=== PATIENT | female | born 1965 | race Caucasian/White ===

== ENCOUNTER 2022-02-26 20:58 | Emergency (ER) | payer OTHER ==
[~2022-02-26] VITALS: Ht 167.6 cm; Wt 61.2 kg
--- NOTE | 2022-02-26 21:25 | NUR ---
BIBA PT A/O X 3 FROM HOME C/O DIZZY X TODAY, GENERALIZED BODY ACHES AND COUGH.
[2022-02-26 21:49] LABS: BASOPHILS % (AUTO) 0.8 % (0.0-2.0); EOSINOPHILS % (AUTO) 1.6 % (0.0-6.0); HEMATOCRIT 43 % (33-45); HEMOGLOBIN 14.5 g/dL (11.5-14.8); LYMPHOCYTES % (AUTO) 42.5 % (20.0-44.0); MEAN CORPUSCULAR HGB CONC 34 g/dl (31.0-36.0); MEAN CORPUSCULAR VOLUME 95 fL (82-100); MONOCYTES # (AUTO) 0.5 K/uL (0.1-1.30); MONOCYTES % (AUTO) 11.3 % (2.0-12.0); NEUTROPHILS % (AUTO) 43.8 % (43.0-81.0); PLATELET COUNT (AUTO) 219 K/uL (150-450); RED BLOOD CELL COUNT(AUTO) 4.52 MIL/uL (4.0-5.2); WHITE BLOOD COUNT (AUTO) 4.6 K/uL (4.3-11.0)
[2022-02-26 22:06] LABS: CALCIUM, SERUM 9.1 mg/dL (8.5-10.1); CREATININE 0.8 mg/dL (0.6-1.3); POTASSIUM 3.9 mmol/L (3.5-5.1)
[2022-02-26 22:12] LABS: ALBUMIN 3.2 g/dL (3.4-5.0); BILIRUBIN,DIRECT 0.1 mg/dL (0.0-0.2); BILIRUBIN,TOTAL 0.2 mg/dL (0.2-1.0); TOTAL PROTEIN, SERUM 6.9 g/dL (6.4-8.2)
--- NOTE | 2022-02-26 22:14 | NUR ---
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
--- NOTE | 2022-02-26 22:28 | NUR ---
C.SWAB COLLECTED AND SENT
[2022-02-26] MEDS ORDERED: MECLIZINE HCL 25 MG TABLET PO ONE (22:30)
[2022-02-26] MEDS ORDERED: LORAZEPAM INJ 2 MG/ML VIAL IV ONE (22:30)
[2022-02-26] MEDS ORDERED: MECLIZINE HCL 25 MG TABLET ONE (22:30)
[2022-02-26] MEDS ORDERED: LORAZEPAM INJ 2 MG/ML VIAL ONE (22:33)
[2022-02-26] MEDS ORDERED: ASPIRIN 81 MG TAB.CHEW ONE (23:58)
[2022-02-27] MEDS ORDERED: ASPIRIN 81 MG TAB.CHEW PO ONE
--- NOTE | 2022-02-27 02:11 | NUR ---
PT ACCEPTED TO [facility] BY DR CLAROS, ROOM 6W 616-A. # FOR REPORT [phone]. AUTH# FOR TRANSPORT [id number]. [facility] CALL PIT MANAGER ROSALBA WITH TRANSPORT ETA. [phone]
--- NOTE | 2022-02-27 02:25 | NUR ---
CALLED [facility]. NO ALS TRANSPORT AVAILABLE FOR OVER 12 HOURS.
--- NOTE | 2022-02-27 02:26 | NUR ---
CALLED [facility] FOR AN ALS TRANSPORT REQUEST. NO ANSWER.
--- NOTE | 2022-02-27 02:27 | NUR ---
CALLED [facility] FOR ALS TRANSPORT. [facility] WILL BE HERE TO TRANSFER PT TO [facility] AT 0700.
--- NOTE | 2022-02-27 04:30 | NUR ---
REPORT GIVEN TO AUREA RN 6 [facility] EPT WILL BE PICKED UP AT 0700
--- NOTE | 2022-02-27 06:49 | NUR ---
Jerry ramsey in [facility] - 02/27/22 at 0722 by IAN MAC CALLED FOR HIGHER LEVEL OF CARE. NO CAPACITY.
--- NOTE | 2022-02-27 07:43 | NUR ---
[facility] WILL BE HERE IN 1.5 HOURS TO TRANSPORT PT.
[2022-02-27 08:44] VITALS: BP 98/66
--- NOTE | 2022-02-27 09:18 | NUR ---
Transfer Note: Going To [facility] Transferring MD: Manan Accepting : [facility] Transporting Agency: [place] [id number]
--- NOTE | 2022-02-27 09:20 | NUR ---
PICKED UP BY [facility] IN STABLE CONDITION
== END 2022-02-27 09:22 | disposition short-term general hospital (02) ==
LOC: ER 21:15
DX: G11.9 Hereditary ataxia, unspecified (principal); I63.9 Cerebral infarction, unspecified; R47.1 Dysarthria and anarthria; R07.9 Chest pain, unspecified; Z20.822 Contact with and (suspected) exposure to COVID-19; R42 Dizziness and giddiness; E78.5 Hyperlipidemia, unspecified; R29.700 NIHSS score 0
CPT/HCPCS: 36415 ×2; 70450; 71045; 80048; 80076; 83690; 84484 ×3; 85025; 85730; 87081; 87426; 93005; 96374; 99285; C9803; J2060; J8597